=== PATIENT | female | born 1995 | race Caucasian/White ===

== ENCOUNTER 2016-11-02 19:30 | Emergency (ER) | payer OTHER ==
[2016-11-02] MEDS ORDERED: PROMETHAZINE HCL 25 MG/ML INJ IVP ONE (20:00)
[2016-11-02] MEDS ORDERED: ONDANSETRON 4 MG/2 ML VIAL IVP ONE (20:00)
[2016-11-02] MEDS ORDERED: NS 1,000 ML IV ONE (20:01)
--- NOTE | 2016-11-02 20:02 | EDPHY ---
H & P Stated Complaint: fever, body aches HPI/ROS: CHIEF COMPLAINT: Flu-like symptoms HISTORY OF PRESENT ILLNESS: one-day history of headache, body aches, chills, fever, nausea and vomiting. There is also some sore throat and generalized malaise. She feels very achy all over. No neck pain or stiffness. No chest pain. Minimal cough. No abdominal pain. No urinary complaints. Symptoms are moderate to severe. Improvement with ibuprofen [id number] today. No Radiating complaints. No other associated complaints modifying factors. REVIEW OF SYSTEMS: Ten systems reviewed and are negative unless otherwise noted in the HPI EXAMINATION General Appearance: Alert, no distress Head: normocephalic, atraumatic Eyes: Pupils equal and round, no conjunctival pallor or injection. EOMs intact. ENT, Mouth: Mucous membranes moist . Uvula midline. No erythema or edema. Neck: Normal inspection, supple, non-tender . anterior cervical lymphadenopathy. . No nuchal rigidity. No meningismus. Respiratory: Lungs are clear to auscultation . No wheezing, rhonchi or crackles. Cardiovascular: Regular rate and rhythm . No murmur. Pulses intact distally. Gastrointestinal: Abdomen is soft and nontender Back: non-tender, no bony abnormalities Neurological: A&O, nonfocal, normal gait Skin: Warm and dry, no rash Extremities: Nontender, no pedal edema Psychiatric: Mood and affect normal DIFFERENTIAL DIAGNOSES: Including but not limited to Influenza, mononucleosis, viral illness, nausea, vomiting, malaise MDM: 8:00 p.m. symptoms consistent with influenza versus mono. She is very well appearing. Vital signs are stable. There is some erythema of the throat but no splenomegaly. I have ordered a mono test, IV fluids and flu test is pending. She is in no acute distress resting comfortably at this time not actively vomiting. 8:50 p.m. influenza is negative. Lee was negative. I feel that the likelihood is higher that this is influenza than any other etiology. Vital signs are stable. She has received IV fluid and antiemetic. Discharged home with nausea medicine and a trial of Tamiflu as she is within the 48 hour window. Follow up with primary care physician. Return to ER precautions discussed. She is comfortable with this plan and discharged home stable condition. SUPERVISION: This patient was independently evaluated without the aide of supervising physician. Source: Patient Exam Limitations: No limitations - Personal History LMP (Females 10-55): IUD In Place Current Tetanus/Diphtheria Vaccine: Unsure Current Tetanus Diphtheria and Acellular Pertussis (TDAP): Unsure - Medical/Surgical History Hx Asthma: No Hx Chronic Respiratory Disease: No Hx Diabetes: No Hx Cardiac Disease: No Hx Renal Disease: No Hx Cirrhosis: No Hx Alcoholism: No Hx HIV/AIDS: No Hx Splenectomy or Spleen Trauma: No Other PMH: tonsilectomy, appendectomy, - Social History Smoking Status: Never smoked Constitutional: Initial Vital Signs Temperature (C) 98.1 F 11/02/16 19:32 Heart Rate 84 11/02/16 19:32 Respiratory Rate 18 11/02/16 19:32 Blood Pressure 106/56 L 11/02/16 19:32 O2 Sat (%) 95 11/02/16 19:32 O2 Delivery Mode Room Air Allergies/Adverse Reactions: No Known Allergies Allergy (Unverified 11/02/16 19:35) Home Medications: Medication Instructions Recorded Acetaminophen/Codeine 300/30Mg 1 each PO Q6 PRN #15 tab 11/02/16 [Tylenol #3 (*)] Ondansetron Odt [Zofran Odt 4 mg 4 mg PO Q6 PRN #12 tab 11/02/16 (*)] Oseltamivir Phosphate [Tamiflu 75 75 mg PO BID #10 cap 11/02/16 mg (*)] Promethazine HCl [Phenergan 25mg 25 mg PO Q8 PRN #12 tab 11/02/16 (*)] Medical Decision Making - Data Points Laboratory Results: 11/02/16 11/02/16 20:05 19:45 Monoscreen NEGATIVE (NEGATIVE) Influenza Typ A,B (DFA) NEGATIVE FOR FLU (NEGATIVE) Medications Given: Discontinued Medications Sodium Chloride (Ns) 1,000 mls @ 0 mls/hr IV ONCE ONE PRN Reason: Wide Open Stop: 11/02/16 20:02 Last Admin: 11/02/16 20:07 Dose: 1,000 mls Ondansetron HCl (Zofran) 4 mg IVP EDNOW ONE Stop: 11/02/16 20:01 Last Admin: 11/02/16 20:16 Dose: 4 mg Departure - Departure Disposition: Home, Routine, Self-Care Clinical Impression: Flu-like symptoms Condition: Good Instructions: Promethazine (By mouth), Ondansetron (By mouth), Influenza (ED) Additional Instructions: Follow-up with primary care physician. Return to ER for worsening symptoms, neck pain or stiffness or chest pain Referrals: CECY PEREIRA MD [Other] - As per Instructions Stand Alone Forms: School Excuse, Work Excuse Prescriptions: Acetaminophen/Codeine 300/30Mg [Tylenol #3 (*)] 1 each PO Q6 PRN #15 tab PRN Reason: Pain, Mild Ondansetron Odt [Zofran Odt 4 mg (*)] 4 mg PO Q6 PRN #12 tab PRN Reason: Nausea/Vomiting, Use 1st Oseltamivir Phosphate [Tamiflu 75 mg (*)] 75 mg PO BID #10 cap Promethazine HCl [Phenergan 25mg (*)] 25 mg PO Q8 PRN #12 tab PRN Reason: Nausea/Vomiting, Use 1st
[2016-11-02] MEDS ORDERED: PROMETHAZINE 25 MG PREPACK #4 BTL TAKEHOME ONE (20:50)
[2016-11-02] MEDS ORDERED: ONDANSETRON 4MG PREPACK#2 BTL TAKEHOME ONE (20:50)
[2016-11-02 21:13] VITALS: BP 97/65; PULSE 70; RESP 16; TEMP 98.2; O2SAT 97
== END 2016-11-02 21:22 | disposition home or self-care (01) ==
DX: J11.1 Influenza due to unidentified influenza virus with other respiratory manifestations (principal)
CPT/HCPCS: 96374; J2405

== ENCOUNTER 2016-11-07 18:32 | Emergency (ER) | payer OTHER ==
--- NOTE | 2016-11-07 19:02 | EDPHY ---
H & P Stated Complaint: cough, fever, SOB Time Seen by Provider: 11/07/16 18:40 HPI/ROS: Chief complaint: Fever, cough, shortness of breath HPI: 21-year-old female was seen emergency department 5 days ago with viral upper respiratory symptoms and diagnosed with likely viral illness. Had a negative influenza and negative mono test at that time. Patient states she has had persistent fatigue and cough productive white to yellowish sputum. She is having pain in her upper chest with coughing. Feeling some mild shortness of breath. She does state that her fevers have been better. She does continue to have some sore throat and also has some pain frontal headache. Some nausea no vomiting. Is having some occasional loose stools. No blood or melena. No urinary symptoms. Is having some general myalgias. Has been taking Tylenol, ibuprofen, and Tylenol with codeine with minimal relief. ROS: 10 point Review of Systems is negative except as noted in the HPI. Past medical history: Attention deficit disorder Medications: Adderall Allergies: No known drug allergies Physical exam: Gen: Awake, Alert, No Distress HEENT: Face: Moderate tenderness to percussion over her right frontal sinus and bilateral maxillary sinuses Nose: no rhinorrhea Eyes: PERRLA, EOMI Mouth: Moist mucosa, mild pharyngeal erythema without exudate or edema Neck: Supple, no JVD Chest: nontender, lungs clear to auscultation Heart: S1, S2 normal, no murmur Abd: Soft, non-tender, no guarding Back: no CVA tenderness, no midline tenderness Ext: no edema, non-tender Skin: no rash Neuro: CN II-XII intact, Sensation grossly intact, Strength 5/5 in bilateral upper and lower extremities - Personal History LMP (Females 10-55): IUD In Place Current Tetanus Diphtheria and Acellular Pertussis (TDAP): Yes - Medical/Surgical History Hx Asthma: No Hx Chronic Respiratory Disease: No Hx Diabetes: No Hx Cardiac Disease: No Hx Renal Disease: No Hx Cirrhosis: No Hx Alcoholism: No Hx HIV/AIDS: No Hx Splenectomy or Spleen Trauma: No Other PMH: tonsilectomy, appendectomy - Social History Smoking Status: Current some day smoker Constitutional: Initial Vital Signs Temperature (C) 37.2 C 11/07/16 18:40 Heart Rate 93 11/07/16 18:40 Respiratory Rate 18 11/07/16 18:40 Blood Pressure 128/81 H 11/07/16 18:40 O2 Sat (%) 95 11/07/16 18:40 O2 Delivery Mode Room Air Allergies/Adverse Reactions: No Known Allergies Allergy (Unverified 11/02/16 19:35) Home Medications: Medication Instructions Recorded Acetaminophen/Codeine 300/30Mg 1 each PO Q6 PRN #15 tab 11/02/16 [Tylenol #3 (*)] Ondansetron Odt [Zofran Odt 4 mg 4 mg PO Q6 PRN #12 tab 11/02/16 (*)] Oseltamivir Phosphate [Tamiflu 75 75 mg PO BID #10 cap 11/02/16 mg (*)] Promethazine HCl [Phenergan 25mg 25 mg PO Q8 PRN #12 tab 11/02/16 (*)] Adderall 20 mg (*) 11/07/16 Medical Decision Making - Diagnostics Imaging: Chest x-ray: Normal - Data Points Medications Given: Discontinued Medications Albuterol (Proventil Inhaler) 2 puffs IH EDNOW ONE Stop: 11/07/16 19:30 Last Admin: 11/07/16 19:29 Dose: 2 puffs Departure - Departure Disposition: Home, Routine, Self-Care Clinical Impression: Viral upper respiratory illness Condition: Good Instructions: Acute Bronchitis (ED), Viral Syndrome (ED) Additional Instructions: You may use your albuterol inhaler, 2 puffs every 4 hours as needed for wheeze or cough. Alternate ibuprofen and acetaminophen as needed for aches, pains, fevers, chills. Follow up with [facility] in 3-4 days if symptoms are not improving. Referrals: CECY LONG [Other] - As per Instructions [facility] [Outside] - As per Instructions
[2016-11-07] MEDS ORDERED: ALBUTEROL 5 MG/ML INH 20 ML BTL IH ONE (19:15)
[2016-11-07] MEDS ORDERED: ALBUTEROL INH PREPACK MDI TAKEHOME ONE (19:23)
[2016-11-07] MEDS ORDERED: ALBUTEROL 60 PUFFS/8 GM MDI IH ONE (19:29)
[2016-11-07 20:15] VITALS: BP 128/78; PULSE 70; RESP 14; TEMP 98.4; O2SAT 94
== END 2016-11-07 20:14 | disposition home or self-care (01) ==
DX: J06.9 Acute upper respiratory infection, unspecified (principal); F17.200 Nicotine dependence, unspecified, uncomplicated

== ENCOUNTER 2017-05-24 19:35 | Emergency (ER) | payer OTHER ==
--- NOTE | 2017-05-24 21:01 | EDPHY ---
H & P Time Seen by Provider: 05/24/17 21:00 HPI/ROS: Chief complaint. Coughing blood HPI. 21-year-old female with 5 day history of flu type symptoms. Generalized achiness, headache, slight vomiting and diarrhea. Runny nose and congestion. Sore throat and hoarseness over the past couple days it has now resolved. Coughing now with slight blood-tinged sputum. Fever last night but not today. No recent foreign travel. [facility] stated has been exposed to sick contacts on campus. ROS Constitutional. Fever last night Eyes. no problems with vision ENT. Sore throat congestion Cardiovascular. no chest pain Respiratory. Cough Abdominal. Vomiting diarrhea . no problems urinating MS. myalgias Skin. no rash Lymph. no swollen glands Neuro. Headache Past Medical/Surgical History: Healthy status post appendectomy Social History: Single, nonsmoker, no alcohol Smoking Status: Never smoked Physical Exam: General Appearance: Alert well-developed female mild distress vital signs are stable Eyes: Pupils equal and round no pallor or injection. ENT, pharynx slightly injected without exudate. Mucous membranes dry Respiratory: There are no retractions, lungs are clear to auscultation. Cardiovascular: Regular rate and rhythm. Gastrointestinal: Abdomen is soft and nontender, no masses, bowel sounds normal. Neurological: Awake and alert, sensory and motor exams grossly normal. Skin: Warm and dry, no rashes. Musculoskeletal: Neck is supple nontender. Extremities symmetrical, full range of motion. Psychiatric: Patient is oriented X 3, there is no agitation. Constitutional: Initial Vital Signs Temperature (C) 36.8 C 05/24/17 19:41 Heart Rate 81 05/24/17 19:41 Respiratory Rate 14 05/24/17 19:41 Blood Pressure 124/75 H 05/24/17 19:41 O2 Sat (%) 95 05/24/17 19:41 O2 Delivery Mode Room Air Allergies/Adverse Reactions: No Known Allergies Allergy (Unverified 11/02/16 19:35) Home Medications: Medication Instructions Recorded Albuterol Hfa Anes Only [Proair 2 puffs IH QID PRN #1 mdi 05/24/17 Hfa Icu (*)] Medical Decision Making - Diagnostics Imaging Results: Imaging Impressions Chest X-Ray 05/24/17 21:19 Impression: Mild peribronchial thickening suggesting airways disease/bronchitis. Two view chest x-ray interpreted by me is normal. No evidence for pneumonia Procedures: IV normal saline with target of 2 L. IV Zofran and IV Toradol. ED Course/Re-evaluation: 1045 the patient is stable however complains of continuing headache. She will be given 1 g Tylenol orally She and I discussed imaging lab results. We discussed treatment plan including criteria for return importance of follow-up and further evaluation. She expresses understanding and agreement Differential Diagnosis: Patient looks well. I think that this is viral syndrome. It certainly could be influenza however she has had a for 5 days and is out of any treatment window. I considered pneumonia. I do not think the patient has meningitis. - Data Points Laboratory Results: Laboratory Results 05/24/17 21:50 05/24/17 21:50 05/24/17 05/24/17 21:50 21:50 WBC 9.42 10^3/uL 10^3/uL (3.80-9.50) RBC 4.84 10^6/uL 10^6/uL (4.18-5.33) Hgb 15.4 g/dL g/dL (12.6-16.3) Hct 44.7 % % (38.0-47.0) MCV 92.4 fL fL (81.5-99.8) MCH 31.8 pg pg (27.9-34.1) MCHC 34.5 g/dL g/dL (32.4-36.7) RDW 11.9 % % (11.5-15.2) Plt Count 245 10^3/uL 10^3/uL (150-400) MPV 9.7 fL fL (8.7-11.7) Neut % (Auto) 49.4 % % (39.3-74.2) Lymph % (Auto) 41.2 % % (15.0-45.0) [place] % (Auto) 7.0 % % (4.5-13.0) Eos % (Auto) 1.9 % % (0.6-7.6) Baso % (Auto) 0.3 % % (0.3-1.7) Nucleat RBC Rel Count 0.0 % % (0.0-0.2) Absolute Neuts (auto) 4.65 10^3/uL 10^3/uL (1.70-6.50) Absolute Lymphs (auto) 3.88 10^3/uL H 10^3/uL (1.00-3.00) Absolute Monos (auto) 0.66 10^3/uL 10^3/uL (0.30-0.80) Absolute Eos (auto) 0.18 10^3/uL 10^3/uL (0.03-0.40) Absolute Basos (auto) 0.03 10^3/uL 10^3/uL (0.02-0.10) Absolute Nucleated RBC 0.00 10^3/uL 10^3/uL (0-0.01) Immature Gran % 0.2 % % (0.0-1.1) Immature Gran # 0.02 10^3/uL 10^3/uL (0.00-0.10) Sodium 139 mEq/L mEq/L (134-144) Potassium 3.8 mEq/L mEq/L (3.5-5.2) Chloride 100 mEq/L mEq/L (97-110) Carbon Dioxide 26 mEq/l mEq/l (22-31) Anion Gap 13 mEq/L mEq/L (8-16) BUN 13 mg/dL mg/dL (7-23) Creatinine 0.8 mg/dL mg/dL (0.6-1.0) Estimated GFR > 60 Glucose 81 mg/dL mg/dL (70-100) Calcium 9.8 mg/dL mg/dL (8.5-10.4) Medications Given: Discontinued Medications Albuterol/Ipratropium (Duoneb) 3 ml IH EDNOW ONE Stop: 05/24/17 21:20 Last Admin: 05/24/17 21:30 Dose: 3 ml Sodium Chloride (Ns) 1,000 mls @ 0 mls/hr IV ONCE ONE; Wide Open PRN Reason: Protocol Stop: 05/24/17 21:20 Last Admin: 05/24/17 21:50 Dose: 1,000 mls Ketorolac Tromethamine (Toradol) 30 mg IVP EDNOW ONE Stop: 05/24/17 21:21 Last Admin: 05/24/17 21:51 Dose: 30 mg Ondansetron HCl (Zofran) 4 mg IVP EDNOW ONE Stop: 05/24/17 21:21 Last Admin: 05/24/17 21:50 Dose: 4 mg Departure - Departure Disposition: Home, Routine, Self-Care Clinical Impression: Viral syndrome Condition: Good Instructions: Viral Syndrome (ED), Acute Bronchitis (ED) Additional Instructions: Frequent, small sips fluids well nauseated. Gradual diet advancement. Tylenol 1000 mg every 4-6 hours, ibuprofen 600 mg every 6 hours as needed for headache, fever, achiness. May use albuterol inhaler to help with cough and breathing. Recheck in 2 days if not improving Referrals: CECY LONG [Other] - 2-3 days, if not improved Stand Alone Forms: School Excuse Prescriptions: Albuterol Hfa Anes Only [Proair Hfa Icu (*)] 2 puffs IH QID PRN #1 mdi PRN Reason: Cough, Moderate
[2017-05-24] MEDS ORDERED: IPRATROPIUM/ALBUTEROL 3 ML DEYVIAL IH ONE (21:19)
[2017-05-24] MEDS ORDERED: NS 1,000 ML IV ONE ×2 (21:19)
[2017-05-24] MEDS ORDERED: KETOROLAC 30 MG/1 ML SDV IVP ONE (21:20)
[2017-05-24] MEDS ORDERED: ONDANSETRON 4 MG/2 ML VIAL IVP ONE (21:20)
[2017-05-24 22:05] VITALS: BP 107/82
[2017-05-24 22:07] LABS: % IMMATURE GRANULYOCYTES 0.2 % (0.0-1.1); ABSOLUTE IMMATURE GRANULOCYTES 0.02 10^3/uL (0.00-0.10); ADD DIFF? NO; ADD MORPH? NO; ADD SCAN? NO; ATYPICAL LYMPHOCYTE FLAG 20 (0-99); FRAGMENT RBC FLAG 0 (0-99); HEMATOCRIT 44.7 % (38.0-47.0); HEMOGLOBIN 15.4 g/dL (12.6-16.3); LEFT SHIFT FLG 0 (0-99); LIPEMIA HEMOLYSIS FLAG 90 (0-99); MEAN CELL HEMOGLOBIN 31.8 pg (27.9-34.1); MEAN CELL HEMOGLOBIN CONCENTR. 34.5 g/dL (32.4-36.7); MEAN CELL VOLUME 92.4 fL (81.5-99.8); MEAN PLATELET VOLUME 9.7 fL (8.7-11.7); PLATELET CLUMPS FLAG 10 (0-99); PLATELET COUNT 245 10^3/uL (150-400); RED BLOOD CELL COUNT 4.84 10^6/uL (4.18-5.33); RED CELL DISTRIBUTION WIDTH 11.9 % (11.5-15.2)
[2017-05-24 22:29] LABS: ANION GAP 13 mEq/L (8-16); CALCIUM 9.8 mg/dL (8.5-10.4); CARBON DIOXIDE 26 mEq/l (22-31); CHLORIDE 100 mEq/L (97-110); CREATININE 0.8 mg/dL (0.6-1.0); GLOMERULAR FILTRATION RATE > 60; GLUCOSE 81 mg/dL (70-100); POTASSIUM 3.8 mEq/L (3.5-5.2); SODIUM 139 mEq/L (134-144)
[2017-05-24 22:49] VITALS: RESP 16
[2017-05-24] MEDS ORDERED: ACETAMINOPHEN 500 MG TAB ONE (22:52)
[2017-05-24] MEDS ORDERED: ACETAMINOPHEN 500 MG TAB PO ONE (22:54)
[2017-05-24 23:56] VITALS: PULSE 86; O2SAT 94
[2017-05-24 23:57] VITALS: TEMP 96.8
== END 2017-05-24 23:56 | disposition home or self-care (01) ==
DX: B34.9 Viral infection, unspecified (principal); E86.9 Volume depletion, unspecified
CPT/HCPCS: 96374; J1885; J2405

== ENCOUNTER 2017-10-31 14:34 | Emergency (ER) | payer OTHER ==
[2017-10-31] MEDS ORDERED: LORazepam 2 MG/ML INJ ONE (14:40)
--- NOTE | 2017-10-31 14:45 | EDPHY ---
H & P Smoking Status: Never smoked Time Seen by Provider: 10/31/17 14:44 HPI/ROS: CHIEF COMPLAINT: Possible acute anxiety HISTORY OF PRESENT ILLNESS: 22-year-old female arrives via private vehicle accompanied by her friend who provides the history as she is currently hyperventilating unable provide history. The friend describes as patient is currently experiencing upper respiratory infection symptoms, has been consuming Mucinex however today believes that she may have consumed excessive amounts of Mucinex in addition to NyQuil and Vyvanse. This is not for recreational purposes. At initial interview however this is not confirmed with the patient due to her hyperventilation. REVIEW OF SYSTEMS: A ten point review of systems was performed and is negative with the exception of the items mentioned in the HPI PAST MEDICAL & SURGICAL HISTORY: No pertinent medical or surgical history SOCIAL HISTORY: Denies illicit drug use. PHYSICAL EXAM (Prior to examination, patient consented to physical exam, hands were washed and my usual and customary physical exam procedures followed) 1) GENERAL: Well-developed, well-nourished, alert and oriented. Anxious, hyperventilating 2) HEAD: Normocephalic, atraumatic 3) HEENT: Pupils equal, round, reactive to light bilaterally. Sclera anicteric. Nasopharynx, oropharynx, clear, no lesions. 4) NECK: Full range of motion, no meningeal signs. 5) LUNGS: Clear auscultation bilaterally, no wheezes, no rhonchi, no retractions. 6) HEART: Regular rate and rhythm, no murmur, no heave, no gallop. 7) ABDOMEN: No guarding, no rebound, no focal tenderness, negative McBurney's,, 8) MUSCULOSKELETAL: Carpal pedal spasms noted. Negative Homans no palpable cord 9) BACK: No visual or palpable abnormality. 10) SKIN: No rash, no petechiae. 11) Psychiatric: Patient is oriented X 3, anxious, hyperventilating. DIFFERENTIAL DIAGNOSIS: In no particular order including but not limited to acute anxiety, accidental overdose, PE (Leslie,Bert Lorena) Constitutional: Initial Vital Signs Temperature (C) 36.5 C 10/31/17 14:48 Heart Rate 170 H 10/31/17 14:48 Respiratory Rate 110 H 10/31/17 14:48 Blood Pressure 118/75 10/31/17 14:48 O2 Sat (%) 100 10/31/17 14:48 O2 Delivery Mode Room Air Allergies/Adverse Reactions: No Known Allergies Allergy (Verified 10/31/17 14:51) Home Medications: Medication Instructions Recorded Albuterol Hfa Anes Only [Proair 2 puffs IH QID PRN #1 mdi 05/24/17 Hfa Icu (*)] MDM/Departure - MDM Diagnostics: 12-lead EKG interpreted by me; official reading is in trace master. My interpretation is sinus tachycardia at 117 With no ischemic changes and normal intervals. (Juan Ng) Medications Given: Discontinued Medications Sodium Chloride (Ns) 1,000 mls @ 0 mls/hr IV ONCE ONE PRN Reason: Wide Open Stop: 10/31/17 14:54 Last Admin: 10/31/17 14:54 Dose: 1,000 mls Sodium Chloride (Ns) 1,000 mls @ 0 mls/hr IV ONCE ONE PRN Reason: Wide Open Stop: 10/31/17 16:16 Last Admin: 10/31/17 16:18 Dose: 1,000 mls Lorazepam (Ativan Injection) 2 mg IVP EDNOW ONE Stop: 10/31/17 14:54 Last Admin: 10/31/17 14:54 Dose: 2 mg ED Course/Re-evaluation: 2:45 p.m.: Patient hyperventilating, appears anxious I am unable to obtain direct history. Will be given IV benzodiazepine, hydration and re-evaluate. Care of patient under supervision of secondary supervising physician Dr Ng. 3:04 p.m.: Re-evaluation at this time after 2 mg of IV Ativan. She is somnolent, however at this time she is able to tell me that when she woke today at 10:30 a.m. She was experiencing URI symptoms and because she was supposed to go on a hike with her friends she took her daily Vyvanse followed by a very large cup of coffee followed by 2 doses of Mucinex and Sudafed. I specifically asked her whether this was for recreational purposes or in a self-injurious or suicide attempt and she adamantly denies this. 4:11 p.m.: Patient informs that she would like to be discharged. States that she is feeling improvement. I re-evaluated her, she is somnolent but easily woken. Heart rate is 115. Recommend she remain in the ER for period of time for observation and recommend EKG. She agrees to an EKG. Revaluation. Continued tachycardia, sleeping, appears well, states that she is feeling better and would like to go home. She had discussed with that her tachycardia is more than likely secondary to consumption of multiple sympathomimetic stimulants. Her heart rate will more than likely progressively decrease over the next few hours. Once again I inquired whether her consumption of these stimulants was for self-injurious or suicidal purposes and she denies this she describes that she was "trying to wake up and feel better from my cold so I could go hiking with friends". Plan will be discharge. I recommend she exercise caution in the future with medication. Doubt pulmonary embolus. Usual customary discharge precautions instructions provided. (Bert Nelson) - Depart Disposition: Home, Routine, Self-Care Clinical Impression: Stimulant abuse, Tachycardia Condition: Good Instructions: Polysubstance Abuse (ED), Tachycardia (ED) Additional Instructions: Please exercise caution when consuming cold and flu medications and other medications. Referrals: ROQUE Jackman,. [Clinic] - 1-2 days without fail
[2017-10-31 14:50] VITALS: TEMP 97.7
[2017-10-31] MEDS ORDERED: LORazepam 2 MG/ML INJ IVP ONE (14:53)
[2017-10-31] MEDS ORDERED: NS 1,000 ML IV ONE ×2 (14:53→16:15)
[2017-10-31 15:49] LABS: PLATELET COUNT 179 10^3/uL (150-400)
--- NOTE | 2017-10-31 16:51 | CPEKG ---
Heart Rate: 117 RR Interval: 513 P-R Interval: 148 QRSD Interval: 70 QT Interval: 328 QTC Interval: 458 P [place]: 60 QRS [place]: 87 T Wave [place]: 10 EKG Severity - BORDERLINE ECG - EKG Impression: SINUS TACHYCARDIA EKG Impression: BORDERLINE T ABNORMALITIES, ANTERIOR LEADS Electronically Signed By: Juan Ng 31-Oct-2017 16:51:57
[2017-10-31 17:00] VITALS: BP 130/81; PULSE 110; RESP 16; O2SAT 98
== END 2017-10-31 16:58 | disposition home or self-care (01) ==
DX: R00.0 Tachycardia, unspecified (principal); F15.10 Other stimulant abuse, uncomplicated
CPT/HCPCS: 96374; G0480; J2060

== ENCOUNTER 2018-07-17 14:43 | Emergency (ER) | payer OTHER ==
--- NOTE | 2018-07-17 14:57 | EDPHY ---
HPI/HX/ROS/PE/MDM Narrative: CHIEF COMPLAINT: Abdominal pain HPI: The patient is a 22 y/o female with a history of an appendectomy complaining of nausea, vomiting, diarrhea and abdominal pain, onset , 3 days ago. Around 2 days ago she developed a headache that was not alleviated by Naproxen. Last night her symptoms exacerbated and she was subjectively febrile. She has a constant dull abdominal pain that intermittently becomes sharp; the abdominal pain is primarily localized around her umbilicus. She has also had a decreased appetite. No fever, chest pain, shortness of breath, numbness, paresthesias. REVIEW OF SYSTEMS: Aside from elements discussed in the HPI, a comprehensive 10 system review of systems is otherwise negative. PMH: Appendectomy, tonsillectomy SOCIAL HISTORY: Lives in [place], friend at bedside, employed as a [employer] PHYSICAL EXAM: General: Patient is alert, in no acute distress. ENT: Eyes are normal to inspection. ENT inspection normal. Neck: Normal inspection. Full range of motion. Respiratory: No respiratory distress. Breath sounds normal bilaterally. Cardiovascular: Regular rate and rhythm. Strong peripheral pulses. Normal cap refill. Abdomen: Diffuse mild tenderness palpation, worse in the epigastric. There are no peritoneal signs. There are normal bowel sounds. Back: Normal to inspection. No tenderness to palpation. Skin: Normal color. No rash. Warm and dry. Extremities: Normal appearance. Full range of motion. Neuro: Oriented x3. Normal motor function. Normal sensory function. ED Course: 1605: I reviewed patient's abdominal x-ray which reveals some constipation. Her labs are unremarkable; UA still pending. 1630: Patient's pain has not improved after Toradol and fluids; 0.5mg IV Dilaudid administered. 1703: Reassessed patient and discussed laboratory and imaging findings. She is still having abdominal pain primarily located around the umbilicus. Abdominal US ordered. 183: US completed. 1901: Patient has a normal abdominal US per Dr. Baptiste, radiologist. 0: Reassessed patient and discussed imaging findings. I have discussed the risks and benefits of having an abdominopelvic CT performed. Patient is okay with having the CT performed. 2019: I reviewed patient's abdominopelvic CT, which shows no acute findings. Radiologist reading still pending. 2044: I spoke with the radiologist, the patient has a normal abdominopelvic CT. 2049: Reassessed patient and discussed imaging findings. She will be given Bentyl prior to discharge. I have referred her to a roustabout crew. Return precautions provided; patient is comfortable with this plan. MDM: This patient presents with umbillical and epigastric abdominal pain of unknown etiology. We performed an extensive workup including CT, US, labs, which do not reveal any significant pathology or clear source of pain. Given negative workup , I suspect this may represent gastroenteritis or possibly non-toxic food bourne illness. Patient is safe for discharge home with outpatient follow-up. - Data Points Imaging Results: Imaging Impressions Abdomen X-Ray 07/17/18 15:36 Impression: Query constipation. Abdomen Ultrasound 07/17/18 17:13 Impression: Negative right upper quadrant ultrasound. Results called and discussed with Dr. Basilio Acuña on July 17, 2018 at 1901 hours.. Imaging: Discussed imaging studies w/ scallop cutter Radiologist, I viewed and interpreted images myself Laboratory Results: Laboratory Results 07/17/18 15:08 07/17/18 15:08 07/17/18 07/17/18 07/17/18 16:23 15:08 15:08 WBC RBC Hgb Hct MCV MCH MCHC RDW Plt Count MPV Neut % (Auto) Lymph % (Auto) [place] % (Auto) Eos % (Auto) Baso % (Auto) Nucleat RBC Rel Count Absolute Neuts (auto) Absolute Lymphs (auto) Absolute Monos (auto) Absolute Eos (auto) Absolute Basos (auto) Absolute Nucleated RBC Immature Gran % Immature Gran # Sodium 141 mEq/L mEq/L (135-145) Potassium 4.0 mEq/L mEq/L (3.3-5.0) Chloride 107 mEq/L mEq/L (97-110) Carbon Dioxide 27 mEq/l mEq/l (22-31) Anion Gap 7 mEq/L mEq/L (6-14) BUN 16 mg/dL mg/dL (7-23) Creatinine 0.7 mg/dL mg/dL (0.6-1.0) Estimated GFR > 60 Glucose 91 mg/dL mg/dL (70-100) Calcium 8.7 mg/dL mg/dL (8.5-10.4) Total Bilirubin 0.5 mg/dL mg/dL (0.1-1.4) Conjugated Bilirubin 0.2 mg/dL mg/dL (0.0-0.5) Unconjugated Bilirubin 0.3 mg/dL mg/dL (0.0-1.1) AST 18 IU/L IU/L (14-46) ALT 23 IU/L IU/L (9-52) Alkaline Phosphatase 37 IU/L L IU/L (38-126) Total Protein 6.4 g/dL g/dL (6.3-8.2) Albumin 3.7 g/dL g/dL (3.5-5.0) Lipase 168 IU/L IU/L (23-300) Beta HCG, Qual NEGATIVE Urine Color YELLOW Urine Appearance CLEAR Urine pH 5.0 (5.0-7.5) Ur Specific [place] 1.030 (1.002-1.030) Urine Protein NEGATIVE (NEGATIVE) Urine Ketones NEGATIVE (NEGATIVE) Urine Blood NEGATIVE (NEGATIVE) Urine Nitrate NEGATIVE (NEGATIVE) Urine Bilirubin NEGATIVE (NEGATIVE) Urine Urobilinogen 4.0 EU H EU (0.2-1.0) Ur Leukocyte Esterase NEGATIVE (NEGATIVE) Urine Glucose NEGATIVE (NEGATIVE) 07/17/18 15:08 WBC 4.02 10^3/uL 10^3/uL (3.80-9.50) RBC 4.63 10^6/uL 10^6/uL (4.18-5.33) Hgb 14.6 g/dL g/dL (12.6-16.3) Hct 41.7 % % (38.0-47.0) MCV 90.1 fL fL (81.5-99.8) MCH 31.5 pg pg (27.9-34.1) MCHC 35.0 g/dL g/dL (32.4-36.7) RDW 11.9 % % (11.5-15.2) Plt Count 198 10^3/uL 10^3/uL (150-400) MPV 9.4 fL fL (8.7-11.7) Neut % (Auto) 70.3 % % (39.3-74.2) Lymph % (Auto) 16.9 % % (15.0-45.0) [place] % (Auto) 11.9 % % (4.5-13.0) Eos % (Auto) 0.7 % % (0.6-7.6) Baso % (Auto) 0.2 % L % (0.3-1.7) Nucleat RBC Rel Count 0.0 % % (0.0-0.2) Absolute Neuts (auto) 2.82 10^3/uL 10^3/uL (1.70-6.50) Absolute Lymphs (auto) 0.68 10^3/uL L 10^3/uL (1.00-3.00) Absolute Monos (auto) 0.48 10^3/uL 10^3/uL (0.30-0.80) Absolute Eos (auto) 0.03 10^3/uL 10^3/uL (0.03-0.40) Absolute Basos (auto) 0.01 10^3/uL L 10^3/uL (0.02-0.10) Absolute Nucleated RBC 0.00 10^3/uL 10^3/uL (0-0.01) Immature Gran % 0.0 % % (0.0-1.1) Immature Gran # 0.00 10^3/uL 10^3/uL (0.00-0.10) Sodium Potassium Chloride Carbon Dioxide Anion Gap BUN Creatinine Estimated GFR Glucose Calcium Total Bilirubin Conjugated Bilirubin Unconjugated Bilirubin AST ALT Alkaline Phosphatase Total Protein Albumin Lipase Beta HCG, Qual Urine Color Urine Appearance Urine pH Ur Specific [place] Urine Protein Urine Ketones Urine Blood Urine Nitrate Urine Bilirubin Urine Urobilinogen Ur Leukocyte Esterase Urine Glucose Medications Given: Discontinued Medications Hydromorphone HCl (Dilaudid) 0.5 mg IVP EDNOW ONE Stop: 07/17/18 16:34 Last Admin: 07/17/18 16:38 Dose: 0.5 mg Hydromorphone HCl (Dilaudid) 0.5 mg IVP EDNOW ONE Stop: 07/17/18 17:50 Last Admin: 07/17/18 17:57 Dose: 0.5 mg Sodium Chloride (Ns) 1,000 mls @ 0 mls/hr IV EDNOW ONE; Wide Open PRN Reason: Protocol Stop: 07/17/18 15:02 Last Admin: 07/17/18 15:35 Dose: 1,000 mls Ketorolac Tromethamine (Toradol) 15 mg IVP EDNOW ONE Stop: 07/17/18 15:26 Last Admin: 07/17/18 15:34 Dose: 15 mg General Time Seen by Provider: 07/17/18 14:55 Initial Vital Signs: Initial Vital Signs Temperature (C) 37.3 C 07/17/18 14:46 Heart Rate 87 07/17/18 14:46 Respiratory Rate 16 07/17/18 14:46 Blood Pressure 100/53 L 07/17/18 14:46 O2 Sat (%) 99 07/17/18 14:46 O2 Delivery Mode Room Air Allergies/Adverse Reactions: No Known Allergies Allergy (Verified 10/31/17 14:51) Departure - Departure Disposition: Home, Routine, Self-Care Clinical Impression: Abdominal pain Condition: Good Instructions: Acute Abdominal Pain (ED) Additional Instructions: Follow-up with your primary doctor or a roustabout crew within 72 hours. Return to the Emergency Department for fever, worsening pain, flank pain or failure to improve within 72 hours. Referrals: Main Gann MD [Medical Doctor] - As per Instructions Calvin Centeno MD [[facility] [place] Primary Care Provider] - As per Instructions Report Scribed for: Basilio Acuña Report Scribed by: Brianna Arceo Date of Report: 07/17/18 Time of Report: 14:57 Physician Review and Approval Statement: Portions of this note were transcribed by an ED scribe. I personally performed the history, physical exam, and medical decision making; and confirm the accuracy of the information in the transcribed note.
[2018-07-17] MEDS ORDERED: NS 1,000 ML IV ONE (15:01)
[2018-07-17 15:24] LABS: PLATELET COUNT 198 10^3/uL (150-400)
[2018-07-17] MEDS ORDERED: KETOROLAC 30 MG/1 ML SDV IVP ONE (15:25)
[2018-07-17] MEDS ORDERED: HYDROmorphONE/DILAUDID 2 MG/ML INJ IVP ONE ×2 (16:33→17:49)
[2018-07-17] MEDS ORDERED: IOPAMIDOL (ISOVUE-300) 100 ML BTL ONE (18:18)
[2018-07-17] MEDS ORDERED: DICYCLOMINE 10 MG CAP PO ONE (20:46)
[2018-07-17 21:04] VITALS: BP 104/74
== END 2018-07-17 21:02 | disposition home or self-care (01) ==
DX: R10.11 Right upper quadrant pain (principal); E86.9 Volume depletion, unspecified
CPT/HCPCS: 96374; J1170; J1885; Q9967